=== PATIENT | female | born 1940 | race Caucasian/White ===

== ENCOUNTER 2017-10-18 01:50 | Emergency (ER) | payer OTHER, MEDICAID ==
[~2017-10-18] VITALS: Ht 167.6 cm; Wt 59.0 kg
[~2017-10-18 01:50] MED LIST: CARV3.1240 PO; LEVO150T10 PO; LISI10TA6 PO; ONDA-143 PO; PRE5T PO
[2017-10-18] MEDS ORDERED: IPRATROPIUM BROM 0.5 MG/2.5ML INH SOL NEB ONE (03:15)
[2017-10-18] MEDS ORDERED: ALBUTEROL SULF 2.5 MG/0.5ML(0.5%) NEB SOLN NEB ONE (03:15)
[2017-10-18] MEDS ORDERED: methylPREDNISolone SOD SUCC 125 MG/2 ML VL IV ONE (04:15)
[2017-10-18] MEDS ORDERED: cefTRIAXone 1GM/10ml IVPUSH 10 ML IV ONE (04:15)
[2017-10-18] MEDS: MAGNESIUM SULFATE 1GM/100ML 100 ML IV SCH ×2 (04:51→05:55)
[2017-10-18 06:10] VITALS: BP 119/58
[2017-10-18 06:16] LABS: Basophils # (auto) 0 uL; Basophils % (auto) 0.6 % (0.0-2.0); Eosinophils % (auto) 12.9 % (0.0-7.0); Hematocrit 35.5 % (36.0-46.0); Hemoglobin 12.1 g/dL (12.2-16.2); Lymphocytes # (auto) 2.1 uL; Lymphocytes % (auto) 26.6 % (10.0-50.0); Mean Corpuscular Hemoglobin 31.8 pg (28.0-32.0); Mean Corpuscular Hgb Conc. 34.1 g/dL (32.0-36.0); Mean Corpuscular Volume 93.3 fL (80.0-100.0); Monocytes # (auto) 0.6 uL; Monocytes % (auto) 8.3 % (0.0-12.0); Neutrophils % (auto) 51.6 % (37.0-80.0); Nucleated Red Blood Cells % 0.1 %; Platelet Count (auto) 208 10^3/uL (140-450); Red Cell Distribution Width 14.4 % (11.8-14.3); White Blood Cell 7.8 10^3/uL (4.4-10.8)
[2017-10-18 06:25] LABS: INR 0.96 (0.9-1.15); Partial Thromboplastin Time 21.5 sec (23.78-33.04); Prothrombin Time 10.3 sec (9.27-12.13)
[2017-10-18 06:34] LABS: Albumin 2.9 g/dL (3.4-5.0); Anion Gap 9 (5-15); Calcium 8.7 mg/dL (8.5-10.1); Carbon Dioxide 24 mmol/L (21-32); Chloride 109 mmol/L (98-107); Glucose 128 mg/dL (74-106); Magnesium 2.6 mg/dL (1.6-2.6); Sodium 142 mmol/L (136-145)
[2017-10-18 06:52] LABS: Alanine Aminotransferase 16 U/L (13-56); Alkaline Phosphatase 62 U/L (45-117); Aspartate Aminotransferase 23 U/L (15-37); BUN/Creatinine Ratio 30.2; Bilirubin, Total 0.4 mg/dL (0.2-1.0); Blood Urea Nitrogen 26 mg/dL (7-18); GFR African American 82 mL/min; GFR Non-African American 68 mL/min; Total Protein 6.8 g/dL (6.4-8.2)
== END 2017-10-18 07:23 | disposition home or self-care (01) ==
LOC: EDBD 01:50 → ER 01:50
DX: J45.901 Unspecified asthma with (acute) exacerbation (principal); I25.10 Atherosclerotic heart disease of native coronary artery without angina pectoris; I50.9 Heart failure, unspecified; N18.3 Chronic kidney disease, stage 3 (moderate); Z86.718 Personal history of other venous thrombosis and embolism; Z90.710 Acquired absence of both cervix and uterus; Z86.711 Personal history of pulmonary embolism
CPT/HCPCS: 36415; 71045; 80053; 83735; 83880; 84484; 85025; 85610; 85730; 93005; 94640; 96365; 96375; 99285; J0696; J2930; J3475

== ENCOUNTER → 2019-10-29 | Emergency (ER) | payer OTHER, MEDICAID ==
[~2019-10-29] VITALS: Ht 160 cm; Wt 54.4 kg
[~2019-10-29] MED LIST changes: +LISI-648 PO; -LISI10TA6 PO; +MORPHINE SULFATE 4 MG/ML SYR/VIAL IV ONE; +ONDANSETRON HCL 4 MG/2 ML VIAL IV ONE
[2019-10-29 10:43] LABS: Basophils # (auto) 0 10 ^3/uL (0-0.2); Basophils % (auto) 0.4 % (0.0-2.0); Eosinophils # (auto) 0.1 10 ^3/uL (0-0.8); Hematocrit 31.1 % (36.0-46.0); Hemoglobin 10.3 g/dL (12.2-16.2); Lymphocytes # (auto) 0.8 10 ^3/uL (0.4-5.4); Lymphocytes % (auto) 13.5 % (10.0-50.0); Mean Corpuscular Hemoglobin 29.8 pg (28.0-32.0); Mean Corpuscular Hgb Conc. 33.2 g/dL (32.0-36.0); Mean Corpuscular Volume 89.7 fL (80.0-100.0); Monocytes # (auto) 0.7 10 ^3/uL (0-1.3); Monocytes % (auto) 12.6 % (0.0-12.0); Neutrophils # (auto) 4.3 10 ^3/uL (1.6-8.6); Neutrophils % (auto) 72.5 % (37.0-80.0); Nucleated Red Blood Cells % 0.2 %; Platelet Count (auto) 390 10^3/uL (140-450); Red Blood Cells 3.47 10^6/uL (4.0-5.20); White Blood Cell 5.9 10^3/uL (4.4-10.8)
[2019-10-29 11:04] LABS: Alanine Aminotransferase 13 U/L (13-56); Amylase 51 U/L (25-115); Anion Gap 7 (5-15); Aspartate Aminotransferase 25 U/L (15-37); Blood Urea Nitrogen 20 mg/dL (7-18); Calcium 9.4 mg/dL (8.5-10.1); Carbon Dioxide 27 mmol/L (21-32); Chloride 106 mmol/L (98-107); Glucose 112 mg/dL (74-106); Lipase 63 U/L (73-393); Magnesium 1.8 mg/dL (1.6-2.6); Potassium 3.7 mmol/L (3.5-5.1); Sodium 140 mmol/L (136-145)
[2019-10-29 11:13] LABS: Alkaline Phosphatase 99 U/L (45-117); BUN/Creatinine Ratio 23.8; Bilirubin, Total 0.4 mg/dL (0.2-1.0); GFR African American 84 mL/min; GFR Non-African American 70 mL/min; Total Protein 7.8 g/dL (6.4-8.2)
[2019-10-29 15:00] VITALS: BP 119/74
== END | disposition home or self-care (01) ==
LOC: EDUNIT# 08:42 → ER 08:48 → EDBD 08:48
DX: C22.9 Malignant neoplasm of liver, not specified as primary or secondary (principal); G89.4 Chronic pain syndrome; E86.0 Dehydration; I25.10 Atherosclerotic heart disease of native coronary artery without angina pectoris; J44.9 Chronic obstructive pulmonary disease, unspecified; Z79.899 Other long term (current) drug therapy
CPT/HCPCS: 36415; 74176; 80053; 82150; 83690; 83735; 84484; 85025; 93005; 96374; 96375; 99285; J2270; J2405

== ENCOUNTER 2019-11-05 11:23 | Inpatient (IN) | payer OTHER, MEDICAID ==
[~2019-11-05] VITALS: Ht 162.6 cm; Wt 49.0 kg
[~2019-11-05 11:23] MED LIST changes: -MORPHINE SULFATE 4 MG/ML SYR/VIAL IV ONE; -ONDANSETRON HCL 4 MG/2 ML VIAL IV ONE
[2019-11-05] MEDS ORDERED: SODIUM CHLORIDE 0.9% 1,000 ML IV ONE (11:45)
[2019-11-05] MEDS ORDERED: ONDANSETRON HCL 4 MG/2 ML VIAL IV ONE (11:45)
[2019-11-05 12:39] LABS: Hematocrit 33.8 % (36.0-46.0); Hemoglobin 11.2 g/dL (12.2-16.2); Mean Corpuscular Hgb Conc. 33.1 g/dL (32.0-36.0); Mean Corpuscular Volume 90.8 fL (80.0-100.0); Platelet Count (auto) 391 10^3/uL (140-450); Red Blood Cells 3.72 10^6/uL (4.0-5.20); White Blood Cell 6.2 10^3/uL (4.4-10.8)
[2019-11-05 12:45] LABS: Basophils % (manual) 0 (0.0-2.0); Blast Cells 0; Eosinophils % (manual) 0 (0-7); Metamyelocytes % 0; Myelocytes % 0; Promyelocytes % 0; Reactive Lymphocytes 0; Red Cell Distribution Width 22.6 % (11.8-14.3)
[2019-11-05 12:55] LABS: Calcium 9.2 mg/dL (8.5-10.1); Magnesium 1.6 mg/dL (1.6-2.6); Potassium 3.8 mmol/L (3.5-5.1)
[2019-11-05 13:00] LABS: BUN/Creatinine Ratio 34.5; Bilirubin, Total 0.5 mg/dL (0.2-1.0); Total Protein 7.8 g/dL (6.4-8.2)
[2019-11-05 13:10] LABS: Band Neutrophils % (manual) 20; Lymphocytes % (manual) 8 (10.0-50.0); Monocytes % (manual) 9 (0-12)
[2019-11-05] MEDS ORDERED: NITROGLYCERIN 0.4 MG SL TAB SL PRN ×2 (15:30→17:15)
[2019-11-05] MEDS ORDERED: MORPHINE SULF INJ 2 MG/ML SYRINGE 1ML IV PRN ×3 (15:30→17:15)
[2019-11-05] MEDS ORDERED: CARV6.2551 PO (16:42)
[2019-11-05] MEDS ORDERED: LEVO75TA6 PO (16:42)
[2019-11-05] MEDS ORDERED: PRED20TA2 PO (16:46)
[2019-11-05] MEDS ORDERED: APIX5TAB PO (16:46)
[2019-11-05] MEDS ORDERED: ALBUAER3 IN (16:46)
[2019-11-05] MEDS ORDERED: IPRA0.00 IN (16:46)
[2019-11-05] MEDS ORDERED: PYRI100T51 PO (16:47)
[2019-11-05] MEDS ORDERED: ASCO500T11 PO (16:48)
[2019-11-05] MEDS ORDERED: DOCUSATE SOD 100 MG CAP PO PRN (17:15)
[2019-11-05] MEDS ORDERED: LORazepam 0.5 MG TAB PO PRN (17:15)
[2019-11-05] MEDS ORDERED: ALUM & MAG HYDROX-SIMETH LIQ(MAALOX) 30 ML PO PRN (17:15)
[2019-11-05] MEDS ORDERED: methylPREDNISolone SOD SUCC 40 MG/ML VL IV ONE (17:15)
[2019-11-05] MEDS ORDERED: PIPERACILLIN-TAZOB 3.375GM 100 ML IV ONE (17:15)
[2019-11-05] MEDS ORDERED: ACETAMINOPHEN 325 MG TAB PO PRN (17:15)
[2019-11-05] MEDS ORDERED: HYDROcodone-ACET 5/325MG TAB PO PRN (17:15)
[2019-11-05] MEDS: IPRATROPIUM BROM 0.5 MG/2.5ML INH SOL NEB SCH ×2 (17:58→21:51)
[2019-11-05] MEDS: ALBUTEROL SULF 2.5 MG/0.5ML(0.5%) NEB SOLN NEB PRN (17:58)
[2019-11-05 18:04] LABS: Cholesterol 171 mg/dL (< 200)
[2019-11-05 18:08] LABS: HDL Cholesterol 43 mg/dL (40-59); LDL Cholesterol 100 mg/dL (< 100); Triglycerides 173 mg/dL (< 150)
[2019-11-05 18:37] VITALS: BP 107/64
[2019-11-05] MEDS: Ensure Enlive Strawberry 8oz Bottle PO SCH (19:50)
[2019-11-05 21:00] VITALS: BP 112/67
--- NOTE | 2019-11-05 21:06 | NUR ---
PT TO BE MOVED TO ROOM 248. Q4 MED NEB TXS TO BE HELD AT THIS TIME, COVID RESULTS ARE PENDING. PT IS NOT IN A NEGATIVE PRESSURE ROOM.
[2019-11-05 22:00] VITALS: BP 112/67
[2019-11-05] MEDS: ASCORBIC ACID 500 MG TAB PO SCH (22:16)
[2019-11-05] MEDS: APIXABAN 5 MG TAB PO SCH (22:16)
[2019-11-05] MEDS: FAMOTIDINE 20 MG TAB PO SCH (22:16)
[2019-11-05] MEDS: CARVEDILOL 3.125 MG TAB PO SCH (22:17)
[2019-11-05] MEDS: SODIUM CHLORIDE 0.9% 1,000 ML IV SCH (22:27)
--- NOTE | 2019-11-06 | NUR ---
ROUNDS Patient is resting in bed with eyes closed, no distress noted and patient denies pain. Patient is saturating at 96% on 2LNC.
[2019-11-06] MEDS: PIPERACILLIN-TAZOB 3.375GM 100 ML IV SCH ×5 (00:26→23:23)
--- NOTE | 2019-11-06 01:04 | NUR ---
Telemetry admit from ER CAIO FULLER admitted to Telemetry unit after SBAR received. Patient oriented to SAMARA BRAR RN primary RN, unit, room, bed, and unit policies regarding patient care and visiting hours. Patient now on continuous telemetry monitoring, tele box # 2 and telemetry reading on arrival to unit is Sinus Rhythm at 98BPM. Patient placed on bedside oxygen, weighed by bedscale and encouraged to call if they need something. All questions and concerns addressed, patient verbalized understanding.
[2019-11-06] MEDS: IPRATROPIUM BROM 0.5 MG/2.5ML INH SOL NEB SCH ×2 (01:42→07:13)
[2019-11-06 05:05] VITALS: BP 109/66
[2019-11-06] MEDS: LEVOTHYROXINE SODIUM 25 MCG TAB PO SCH (06:21)
--- NOTE | 2019-11-06 07:00 | NUR ---
PHOTO TAKEN TO LEFT FOREARM
[2019-11-06] MEDS: ALBUTEROL SULF 2.5 MG/0.5ML(0.5%) NEB SOLN NEB PRN (07:14)
--- NOTE | 2019-11-06 07:30 | NUR ---
[facility]SA SWAB SENT TO LAB
--- NOTE | 2019-11-06 07:35 | NUR ---
Opening Shift Note Assumed care of patient, pt currently resting in bed with eyes closed. Patient is on 2 LNC with no even and unlabored respirations. equal chest rise and fall noted. No S/S of distress/SOB. Bed is in lowest locked position, side rails up x2, and call light is within reach. Bed alarm set for safety. will continue to monitor for changes Q1hr and PRN.
[2019-11-06 09:10] VITALS: BP 101/57
[2019-11-06] MEDS: ASCORBIC ACID 500 MG TAB PO SCH ×2 (10:00→21:40)
[2019-11-06] MEDS ORDERED: methylPREDNISolone SOD SUCC 40 MG/ML VL IV SCH (10:00)
[2019-11-06] MEDS ORDERED: METOPROLOL SUCCINATE XL 50 MG TAB PO SCH (10:00)
[2019-11-06] MEDS ORDERED: ENOXAPARIN SOD 30 MG/0.3 ML SYRINGE SC SCH (10:00)
[2019-11-06] MEDS ORDERED: CITALOPRAM HYDROBR 20 MG TAB PO SCH (10:00)
[2019-11-06] MEDS: Ensure Enlive Strawberry 8oz Bottle PO SCH ×3 (10:20→19:02)
[2019-11-06] MEDS: SODIUM CHLORIDE 0.9% 1,000 ML IV SCH (10:20)
[2019-11-06] MEDS: FLORASTOR (S. BOULARDII) 250 MG CAP PO SCH (10:21)
[2019-11-06] MEDS: PYRIDOXINE HCL 50 MG TAB PO SCH (10:21)
[2019-11-06] MEDS: CARVEDILOL 3.125 MG TAB PO SCH ×2 (10:21→21:40)
[2019-11-06] MEDS: APIXABAN 5 MG TAB PO SCH ×2 (10:21→21:40)
[2019-11-06] MEDS: CHOLECALCIFEROL (VITD3) 2,000 UNIT CAP PO SCH (10:22)
[2019-11-06 11:36] LABS: Basophils # (auto) 0 10 ^3/uL (0-0.2); Basophils % (auto) 0.1 % (0.0-2.0); Eosinophils # (auto) 0 10 ^3/uL (0-0.8); Eosinophils % (auto) 0.1 % (0.0-7.0); Hematocrit 26.5 % (36.0-46.0); Lymphocytes # (auto) 0.3 10 ^3/uL (0.4-5.4); Lymphocytes % (auto) 5.1 % (10.0-50.0); Mean Corpuscular Hemoglobin 30.6 pg (28.0-32.0); Mean Corpuscular Hgb Conc. 33.9 g/dL (32.0-36.0); Mean Corpuscular Volume 90.3 fL (80.0-100.0); Monocytes # (auto) 0.4 10 ^3/uL (0-1.3); Monocytes % (auto) 6.8 % (0.0-12.0); Neutrophils # (auto) 5.5 10 ^3/uL (1.6-8.6); Neutrophils % (auto) 87.9 % (37.0-80.0); Nucleated Red Blood Cells % 0.1 %; Platelet Count (auto) 302 10^3/uL (140-450); Red Blood Cells 2.93 10^6/uL (4.0-5.20); White Blood Cell 6.2 10^3/uL (4.4-10.8)
[2019-11-06 11:51] LABS: BUN/Creatinine Ratio 35.8; Calcium 8.2 mg/dL (8.5-10.1); Potassium 3.7 mmol/L (3.5-5.1)
[2019-11-06 11:56] LABS: Red Cell Distribution Width 22.5 % (11.8-14.3)
--- NOTE | 2019-11-06 12:05 | NUR ---
DR. PLUMMER AT BEDSIDE FOR PULM CONSULT. REQUESTING MEDICAL RECORDS FROM [facility]. WILL HAVE PATIENT FILL OUT REQUEST. WILL CONTINUE TO MONITOR Q1H AND PRN.
[2019-11-06] MEDS: ONDANSETRON HCL 4 MG/2 ML VIAL IV PRN (12:13)
[2019-11-06 13:04] VITALS: BP 109/68
--- NOTE | 2019-11-06 13:15 | NUR ---
REPORT GIVEN TO WILLIAM TANG.
--- NOTE | 2019-11-06 15:21 | NUR ---
REPORT GIVEN TO KEREN Frias PATIENT WENT TO CT VIA WHEEL CHAIR NO SIGNS OF DISTRESS. THEN SHE WILL TAKEN TO ROOM 203.
[2019-11-06 17:00] VITALS: BP 110/68
--- NOTE | 2019-11-06 19:43 | NUR ---
Tele box Patient transferred from [facility]. Requested new tele box for [place]. Per Linda, she will send up new tele box with evening strips.
--- NOTE | 2019-11-06 20:00 | NUR ---
Opening Shift Note Assumed care of patient, awake and alert. No S/S of distress/SOB or pain. Instructed on POC and to call for assist PRN, will continue to monitor for changes Q1hr and PRN.
[2019-11-06 21:36] VITALS: BP 121/74
[2019-11-06] MEDS: FAMOTIDINE 20 MG TAB PO SCH ×2 (21:40→21:50)
--- NOTE | 2019-11-06 22:17 | NUR ---
RT NOTE: PT ASSESSED FOR PRN MED NEB TX, PT DENIES SOB AND NO DISTRESS NOTED AT THIS TIME. PT ON RA SPO2 93%, HR 81, RR 18
[2019-11-06 23:51] LABS: Alcohol, Urine < 3.0 mg/dL (0-10); Amphetamine Screen, Urine NEGATIVE (NEGATIVE); Barbiturate Scree,Urine NEGATIVE (NEGATIVE); Benzodiazephine Screen, Urine NEGATIVE (NEGATIVE); Cannabinoid Screen, Urine NEGATIVE (NEGATIVE); Cocaine Screen, Urine NEGATIVE (NEGATIVE); Opiate Scree,Urine NEGATIVE (NEGATIVE); Phencyclidine Screen, Urine NEGATIVE (NEGATIVE)
[2019-11-06 23:55] LABS: Urine Amorphous Crystal FEW /hpf (None Seen); Urine Bacteria FEW /hpf (None Seen); Urine Blood Negative /uL (Negative); Urine Specific Gravity 1.024 (1.001-1.035); Urine WBC 4 /hpf (0 - 5)
[2019-11-07] MEDS: SODIUM CHLORIDE 0.9% 1,000 ML IV SCH ×2 (02:35→21:55)
[2019-11-07 05:00] VITALS: BP 103/62
[2019-11-07] MEDS: PIPERACILLIN-TAZOB 3.375GM 100 ML IV SCH ×3 (06:01→18:21)
[2019-11-07] MEDS: LEVOTHYROXINE SODIUM 25 MCG TAB PO SCH (06:01)
--- NOTE | 2019-11-07 07:30 | NUR ---
Opening Shift Note Assumed care of patient, awake and alert. Respirations are even and unlabored. No S/S of distress/SOB or pain. Bed is low, locked with 2x side rails up. Call light is within reach. Instructed on POC and to call for assist PRN, will continue to monitor for changes Q1hr and PRN.
--- NOTE | 2019-11-07 08:19 | NUR ---
Respiratory note: PT RECEIVED ON ROOM AIR. SPO2 92%. HEART RATE 79. RESPIRATORY RATE 16. BREATH SOUNDS CLEAR. PT INFORMED TO CALL RESPIRATORY IF ANY RESPIRATORY DISTRESS. Addendum: 11/07/19 at 0820 by RT ARSH RT Amended: Links added.
[2019-11-07 09:00] VITALS: BP 106/65
[2019-11-07] MEDS: Ensure Enlive Strawberry 8oz Bottle PO SCH ×3 (09:12→18:21)
[2019-11-07] MEDS: ONDANSETRON HCL 4 MG/2 ML VIAL IV PRN (09:40)
[2019-11-07] MEDS: CARVEDILOL 3.125 MG TAB PO SCH ×2 (09:40→21:54)
[2019-11-07] MEDS: ASCORBIC ACID 500 MG TAB PO SCH ×2 (09:40→21:51)
[2019-11-07] MEDS: FLORASTOR (S. BOULARDII) 250 MG CAP PO SCH (09:40)
[2019-11-07] MEDS: APIXABAN 5 MG TAB PO SCH ×2 (09:41→21:52)
[2019-11-07] MEDS: CHOLECALCIFEROL (VITD3) 2,000 UNIT CAP PO SCH (09:44)
[2019-11-07] MEDS: PYRIDOXINE HCL 50 MG TAB PO SCH (09:44)
[2019-11-07 13:00] VITALS: BP 105/68
--- NOTE | 2019-11-07 13:22 | NUR ---
Requested medical records from [facility] Re-faxed request for medical records.
[2019-11-07 17:00] VITALS: BP 102/59
[2019-11-07 20:00] VITALS: BP 114/50
[2019-11-07 21:15] VITALS: BP 114/50
[2019-11-07] MEDS: FAMOTIDINE 20 MG TAB PO SCH (21:51)
[2019-11-08] MEDS: PIPERACILLIN-TAZOB 3.375GM 100 ML IV SCH ×2 (01:17→05:50)
[2019-11-08 05:00] VITALS: BP 94/57
[2019-11-08] MEDS: LEVOTHYROXINE SODIUM 25 MCG TAB PO SCH (06:49)
--- NOTE | 2019-11-08 07:30 | NUR ---
OPENING SHIFT Report received and Assumed care of patient, awake and alert. Respirations are even and unlabored. No S/S of distress/SOB or pain. Bed is low, locked with 2x side rails up. Call light is within reach. Instructed on POC and to call for assist PRN, will continue to monitor for changes Q1hr and PRN.
[2019-11-08 09:00] VITALS: BP 112/67
[2019-11-08] MEDS: Ensure Enlive Strawberry 8oz Bottle PO SCH ×3 (09:02→18:21)
--- NOTE | 2019-11-08 09:45 | NUR ---
MD VISIT HERE TO SEE AND EXAMINED PATIENT EXPLAIN DISEASE PROCESS AND PLAN OF CARE
[2019-11-08 10:00] LABS: BUN/Creatinine Ratio 26.9; Calcium 8.6 mg/dL (8.5-10.1); Potassium 3.6 mmol/L (3.5-5.1)
[2019-11-08] MEDS: FLORASTOR (S. BOULARDII) 250 MG CAP PO SCH (11:00)
[2019-11-08] MEDS: CHOLECALCIFEROL (VITD3) 1,000UNIT=25mCg TAB PO SCH (11:01)
[2019-11-08] MEDS: ASCORBIC ACID 500 MG TAB PO SCH ×2 (11:03→21:51)
[2019-11-08] MEDS: APIXABAN 5 MG TAB PO SCH ×2 (11:03→21:51)
[2019-11-08] MEDS: CARVEDILOL 3.125 MG TAB PO SCH ×2 (11:03→21:51)
[2019-11-08 11:17] LABS: Hemoglobin 11.6 g/dL (12.2-16.2); Mean Corpuscular Hemoglobin 29.4 pg (28.0-32.0); Mean Corpuscular Hgb Conc. 32.3 g/dL (32.0-36.0); Platelet Count (auto) 313 10^3/uL (140-450); Red Blood Cells 3.95 10^6/uL (4.0-5.20)
[2019-11-08 11:20] LABS: Red Cell Distribution Width 23.2 % (11.8-14.3)
[2019-11-08 11:22] LABS: Band Neutrophils % (manual) 0; Basophils % (manual) 0 (0.0-2.0); Blast Cells 0; Metamyelocytes % 0; Promyelocytes % 0; Reactive Lymphocytes 0
[2019-11-08] MEDS ORDERED: cefTRIAXone 1GM/50ML D5W 50 ML IV ONE (11:30)
[2019-11-08] MEDS ORDERED: MULTIPLE VITAMIN TAB PO ONE (11:30)
--- NOTE | 2019-11-08 11:37 | NUR ---
Nutrition Assessment Notes Please refer to link for full assessment notes. Est Energy needs: [id number] kcals (23-25 kcal/kgBW) Est Protein needs: 51-77 gms/day (1.0-1.5 gm/kgBW) Will continue to monitor and reassess prn. Addendum: 11/08/19 at [address] Amended: Links added.
--- NOTE | 2019-11-08 12:10 | NUR ---
IV TO LEFT ARM INFILTRATED,DISCONTINUED CATHETER INTACT,ATTEMPTED TO START PERIPHERAL IV X2 ,UNSUCCESSFUL,PATIENT REFUSED FOR ANOTHER START.
[2019-11-08 12:18] LABS: Eosinophils % (manual) 2 (0-7); Lymphocytes % (manual) 13 (10.0-50.0); Monocytes % (manual) 13 (0-12); Myelocytes % 4
[2019-11-08 13:00] VITALS: BP 82/58
--- NOTE | 2019-11-08 13:10 | NUR ---
PAGE DR. NUNEZ,INFORMED OF PERIPHERAL IV INFILTRATED AND ATTEMPTED TO START X2, INFORMED PATIENT HAS GINGER CATH RECEIVED ORDER FOR MID LINE AND NOT TO ACCESS GINGER CATH.
--- NOTE | 2019-11-08 14:00 | NUR ---
PICC LINE RN HERE TO START MIDLINE,UNSUCCESSFUL, ABLE TO INSERT g#20 TO RIGHT FORE ARM USING ULTRA SOUND MACHINE
--- NOTE | 2019-11-08 14:35 | NUR ---
Respiratory note: ASSESSED PT FOR PRN MEDNEB TX. HR 89, RR 16, SPO2 95% ON ROOM AIR. BREATH SOUNDS CLEAR. PT SAYS SHE DOESN'T NEED A TX RIGHT NOW. NO S/S OF DISTRESS. MEDNEB TX NOT INDICATED AT THIS TIME. PT AWARE TO CALL FOR RT IF NEEDED.
[2019-11-08 16:40] VITALS: BP 91/58
[2019-11-08 17:15] VITALS: BP 91/58
--- NOTE | 2019-11-08 18:47 | NUR ---
PT ASSESSED FOR PRN MED NEB TX. SPO2 92% ON RA, HR 94. PT DENIES ANY RESPIRATORY DISTRESS. NO TX INDICATED. PT IS AWARE TO HAVE RT PAGED IF TX NEEDED.
--- NOTE | 2019-11-08 20:10 | NUR ---
open note assumed care of pt. upon entering room pt awake and alert on room air with no distress noted or expressed. pt denies pain. pt oriented to this nurse and updated on plan of care. pt bed locked, low and 2x rails up. call light in reach, this nurse to round q1hr and prn. pt encouraged to call as needed.
[2019-11-08] MEDS: FAMOTIDINE 20 MG TAB PO SCH (21:51)
[2019-11-08 22:00] VITALS: BP 104/56
[2019-11-09 04:44] VITALS: BP 101/65
[2019-11-09] MEDS: LEVOTHYROXINE SODIUM 25 MCG TAB PO SCH (06:56)
[2019-11-09 08:00] VITALS: BP 104/56
[2019-11-09] MEDS: Ensure Enlive Strawberry 8oz Bottle PO SCH ×3 (08:00→19:59)
--- NOTE | 2019-11-09 08:00 | NUR ---
ASSESSMENT NOTE PT IS ALERT ORIENTED X4, RESTING IN BED COMFORTABLY, NO DISTRESS NOTED, GENERALIZE WEAKNESS NOTED, ABLE TO SELF REPOSITION AND VERBALIS HER DEMANDS, ASSISTED TO BATHROOM NEEDED, PAIN 0/10, CALL LIGHT WITHIN REACH
[2019-11-09 09:00] VITALS: BP 101/71
[2019-11-09] MEDS: CHOLECALCIFEROL (VITD3) 1,000UNIT=25mCg TAB PO SCH (09:02)
[2019-11-09] MEDS: cefTRIAXone 1GM/50ML D5W 50 ML IV SCH (09:02)
[2019-11-09] MEDS: APIXABAN 5 MG TAB PO SCH ×2 (09:03→22:02)
[2019-11-09] MEDS: ASCORBIC ACID 500 MG TAB PO SCH ×2 (09:03→22:03)
[2019-11-09] MEDS: CARVEDILOL 3.125 MG TAB PO SCH ×2 (09:03→22:03)
[2019-11-09] MEDS: MULTIPLE VITAMIN TAB PO SCH (09:03)
[2019-11-09] MEDS: FLORASTOR (S. BOULARDII) 250 MG CAP PO SCH (10:00)
--- NOTE | 2019-11-09 10:00 | NUR ---
BM PT HAS WATER LOOSE BM, STATED I BEEN GOING FOR A AWHILE>
[2019-11-09 13:00] VITALS: BP 96/59
[2019-11-09] MEDS: metroNIDAZOLE 500 MG TAB PO SCH ×2 (13:40→22:02)
--- NOTE | 2019-11-09 14:00 | NUR ---
LOOSE BM PT HAS A TOTAL OF 4 LOOSE BM BY THIS TIME, KEPT ALWAYS DRY AND CLEAN
[2019-11-09 16:59] VITALS: BP 103/71
--- NOTE | 2019-11-09 18:26 | NUR ---
PT CONTINUE STABLE, CONTINUE MONITORING
--- NOTE | 2019-11-09 20:00 | NUR ---
open note assumed care of pt. upon entering room pt awake and alert on 2L nc no distress noted or expressed. pt oriented to this nurse and updated on plan of care. pt bed locked, low and 2x rails up. call light in reach, this nurse to round q1hr and prn. pt encouraged to call as needed.
[2019-11-09 22:02] VITALS: BP 120/79
[2019-11-09] MEDS: FAMOTIDINE 20 MG TAB PO SCH (22:03)
[2019-11-10 04:56] VITALS: BP 106/65
[2019-11-10 06:05] LABS: BUN/Creatinine Ratio 36.5; Calcium 9.1 mg/dL (8.5-10.1); Potassium 3.7 mmol/L (3.5-5.1)
[2019-11-10] MEDS: LEVOTHYROXINE SODIUM 25 MCG TAB PO SCH (06:48)
[2019-11-10] MEDS: metroNIDAZOLE 500 MG TAB PO SCH ×2 (06:48→18:30)
--- NOTE | 2019-11-10 07:30 | NUR ---
Opening Shift Note Assuming care of patient at this time. Patient is awake and alert. Patient denies pain. Patient shows no signs or symptoms of distress or shortness of breath. Bed is locked and lowered with side rails up x2. Instructed patient on the plan of care for today and to call for assistance as needed. Call light within reach. Will continue to round hourly and as needed.
[2019-11-10] MEDS: Ensure Enlive Strawberry 8oz Bottle PO SCH ×3 (08:30→18:00)
[2019-11-10 09:00] VITALS: BP 98/64
[2019-11-10] MEDS: CARVEDILOL 3.125 MG TAB PO SCH (10:00)
[2019-11-10] MEDS: CHOLECALCIFEROL (VITD3) 1,000UNIT=25mCg TAB PO SCH (11:11)
[2019-11-10] MEDS: ASCORBIC ACID 500 MG TAB PO SCH (11:11)
[2019-11-10] MEDS: FLORASTOR (S. BOULARDII) 250 MG CAP PO SCH (11:11)
[2019-11-10] MEDS: MULTIPLE VITAMIN TAB PO SCH (11:11)
[2019-11-10] MEDS: APIXABAN 5 MG TAB PO SCH (11:11)
[2019-11-10] MEDS: cefTRIAXone 1GM/50ML D5W 50 ML IV SCH (11:24)
[2019-11-10 13:00] VITALS: BP 98/67
[2019-11-10] MEDS ORDERED: MET500T PO (13:10)
[2019-11-10] MEDS ORDERED: MULTTAB99 PO (13:10)
[2019-11-10 15:50] VITALS: BP 98/67
--- NOTE | 2019-11-10 16:47 | NUR ---
D/C Planning Per consult for home health safety evaluation. Faxed clinical information to [facility] . Per Mendy with [facility] patient has been accepted and service to start within 24-48hrs upon d/c day. Faxed clinical information to [facility] requesting authorization. Obtain auth [id number].
[2019-11-10 17:08] VITALS: BP 114/72
--- NOTE | 2019-11-10 18:00 | NUR ---
Discharge Discharge instructions given as ordered. Encourage to follow up with PMD as instructed. All questions and concerns addressed. Patient verbalized understanding. Medication reconciliation form completed and copy given to patient. Home medications held in Pharmacy returned to patient, and needed vaccines given. IV removed with catheter intact, pressure dressing applied. Telemetry unit returned to ICU. Patient taken to vehicle via wheelchair with all personal belongings, accompanied by staff. No distress noted at time of departure.
== END 2019-11-10 18:00 | disposition home health service (06) | DRG 435 ==
LOC: ER 11:23 → EDBD 11:23 → TELE 11:24 → TELE-EAST 23:01 → TELE-CENTR 11-06 15:30
PROVIDERS: ADMIT Hospitalist; ATTEND Internal Medicine Nephrology
DX: C78.7 Secondary malignant neoplasm of liver and intrahepatic bile duct (principal); N17.0 Acute kidney failure with tubular necrosis; C78.00 Secondary malignant neoplasm of unspecified lung; J44.1 Chronic obstructive pulmonary disease with (acute) exacerbation; E44.0 Moderate protein-calorie malnutrition; E87.2 Acidosis; E87.1 Hypo-osmolality and hyponatremia; J98.11 Atelectasis; I27.82 Chronic pulmonary embolism; Z68.1 Body mass index [BMI] 19.9 or less, adult; I31.3 Pericardial effusion (noninflammatory); R18.8 Other ascites; R62.7 Adult failure to thrive; E03.9 Hypothyroidism, unspecified; D72.825 Bandemia; F17.200 Nicotine dependence, unspecified, uncomplicated; I25.10 Atherosclerotic heart disease of native coronary artery without angina pectoris; I50.9 Heart failure, unspecified; N18.9 Chronic kidney disease, unspecified; Z20.828 Contact with and (suspected) exposure to other viral communicable diseases; Z79.01 Long term (current) use of anticoagulants; Z79.899 Other long term (current) drug therapy; Z80.8 Family history of malignant neoplasm of other organs or systems; Z82.49 Family history of ischemic heart disease and other diseases of the circulatory system; Z85.05 Personal history of malignant neoplasm of liver; Z90.710 Acquired absence of both cervix and uterus; Z85.42 Personal history of malignant neoplasm of other parts of uterus; Z79.891 Long term (current) use of opiate analgesic; D63.8 Anemia in other chronic diseases classified elsewhere
CPT/HCPCS: 36415; 36600; 71046; 71250; 80048; 80053; 80061; 80307; 81001; 82805; 83036; 83735; 84484; 85007; 85025; 85027; 87040; 87081; 87086; 87426; 94640; 96361; 96365; 96366; 96375; G0378; J0696; J2405; J2543